=== PATIENT | male | born 1965 | race Two or more races ===

== ENCOUNTER 2023-07-11 19:38 | Inpatient (IN) | payer MEDICARE, MEDICAID ==
[~2023-07-11] VITALS: Ht 162.6 cm; Wt 65.5 kg
[2023-07-11 20:15] VITALS: PULSE 63; RESP 16; O2SAT 95
[2023-07-11 20:22] LABS: Basophils # (auto) 0.1 10 ^3/uL (0-0.2); Basophils % (auto) 0.6 % (0.0-2.0); Eosinophils # (auto) 0.1 10 ^3/uL (0-0.8); Eosinophils % (auto) 0.7 % (0.0-7.0); Hematocrit 40.9 % (41.0-53.0); Hemoglobin 13.5 g/dL (13.5-17.5); Lymphocytes # (auto) 1.3 10 ^3/uL (0.4-5.4); Lymphocytes % (auto) 13.6 % (10.0-50.0); Mean Corpuscular Hemoglobin 32.6 pg (28.0-32.0); Mean Corpuscular Volume 98.9 fL (80.0-100.0); Monocytes # (auto) 0.7 10 ^3/uL (0-1.3); Neutrophils # (auto) 7.4 10 ^3/uL (1.6-8.6); Neutrophils % (auto) 78.1 % (37.0-80.0); Red Blood Cells 4.14 10^6/uL (4.5-5.90); Red Cell Distribution Width 14.1 % (11.8-14.3); White Blood Cell 9.4 10^3/uL (4.4-10.8)
[2023-07-11 20:39] LABS: Acetaminophen < 2.0 UG/ML (10.0-20.0)
[2023-07-11 20:49] LABS: INR 1.03 (0.9-1.15); Prothrombin Time 10.9 sec (9.3-11.8)
[2023-07-11 20:52] LABS: Salicylate < 3.0 mg/dL (2.8-20.0)
[2023-07-11 20:55] LABS: Alanine Aminotransferase 30 U/L (7-40); Albumin 4.6 g/dL (3.2-4.8); Alkaline Phosphatase 60 U/L (46-116); Anion Gap 7 (5-15); Aspartate Aminotransferase 48 U/L (13-40); BUN/Creatinine Ratio 21.3 (10.0-20.0); Blood Urea Nitrogen 23 mg/dL (9-23); Calcium 9.6 mg/dL (8.7-10.4); Carbon Dioxide 26 mmol/L (20-30); Chloride 109 mmol/L (98-107); Glucose 99 mg/dL (74-106); Lipase 20 U/L (12-53); Magnesium 1.8 mg/dL (1.6-2.6); Potassium 4.7 mmol/L (3.5-5.1); Sodium 142 mmol/L (136-145)
[2023-07-11 20:56] LABS: Bilirubin, Total 0.4 mg/dL (0.2-1.0); Total Protein 7.4 g/dL (5.7-8.2)
[2023-07-11] MEDS ORDERED: ACETAMINOPHEN 325 MG TAB PO PRN (21:45)
[2023-07-11] MEDS ORDERED: DOCUSATE SOD 100 MG CAP PO PRN (21:45)
[2023-07-11 21:51] LABS: Blood Alcohol 3.4 mg/dL (<10)
[2023-07-11] MEDS: SODIUM CHLOR 0.9% PF (SALINE LOCK) 10ML VIAL/SYR IV SCH (22:09)
[2023-07-11] MEDS ORDERED: MORPHINE SULFATE INJ 2 MG/ml SYRG IV PRN (22:30)
[2023-07-11] MEDS ORDERED: NITROGLYCERIN 0.4 MG SL TAB SL PRN (22:30)
[2023-07-11] MEDS ORDERED: MECLIZINE HCL 25 MG TAB PO PRN (22:45)
[2023-07-11 23:37] LABS: Urine Bacteria FEW /hpf (None Seen); Urine Blood 1+ /uL (Negative); Urine Clarity Clear (Clear); Urine Color Yellow (Yellow); Urine Hyaline Cast FEW /lpf (0 - 2); Urine Protein, UAD TRACE (Negative); Urine Specific Gravity 1.017 (1.001-1.035); Urine Urobilinogen Normal (Negative); Urine WBC 53 /hpf (0 - 3)
[2023-07-11 23:45] LABS: Amphetamine Screen, Urine Neg (NEGATIVE); Barbiturate Scree,Urine Neg (NEGATIVE); Benzodiazephine Screen, Urine Neg (NEGATIVE); Cannabinoid Screen, Urine Neg (NEGATIVE); Cocaine Screen, Urine Neg (NEGATIVE); Opiate Scree,Urine Pos (NEGATIVE); Phencyclidine Screen, Urine Neg (NEGATIVE)
[2023-07-12] VITALS (8 sets, daily range): BP systolic 115–143; BP diastolic 52–83; PULSE 16–65; RESP 16–65; TEMP 97.9–98.7; O2SAT 91–99
[2023-07-12] MEDS: ONDANSETRON HCL 4 MG/2 ML VIAL IV PRN (01:54)
[2023-07-12] MEDS: HYDROcodone-ACET 5/325MG TAB PO PRN (02:03)
[2023-07-12] MEDS: LEVOTHYROXINE SODIUM 50 MCG TAB PO SCH (05:23)
[2023-07-12 05:44] LABS: Basophils # (auto) 0.1 10 ^3/uL (0-0.2); Basophils % (auto) 0.7 % (0.0-2.0); Eosinophils # (auto) 0 10 ^3/uL (0-0.8); Eosinophils % (auto) 0.5 % (0.0-7.0); Hematocrit 38.1 % (41.0-53.0); Hemoglobin 12.6 g/dL (13.5-17.5); Lymphocytes # (auto) 1.3 10 ^3/uL (0.4-5.4); Lymphocytes % (auto) 17.1 % (10.0-50.0); Mean Corpuscular Hemoglobin 32.9 pg (28.0-32.0); Mean Corpuscular Hgb Conc. 33.2 g/dL (32.0-36.0); Mean Corpuscular Volume 99.1 fL (80.0-100.0); Monocytes # (auto) 0.6 10 ^3/uL (0-1.3); Monocytes % (auto) 7.7 % (0.0-12.0); Neutrophils # (auto) 5.5 10 ^3/uL (1.6-8.6); Nucleated Red Blood Cells % 0.1 %; Red Blood Cells 3.85 10^6/uL (4.5-5.90); Red Cell Distribution Width 13.8 % (11.8-14.3); White Blood Cell 7.5 10^3/uL (4.4-10.8)
[2023-07-12 06:05] LABS: Alanine Aminotransferase 27 U/L (7-40); Albumin 4.2 g/dL (3.2-4.8); Alkaline Phosphatase 53 U/L (46-116); Anion Gap 7 (5-15); Aspartate Aminotransferase 41 U/L (13-40); Calcium 9.4 mg/dL (8.7-10.4); Carbon Dioxide 26 mmol/L (20-30); Chloride 109 mmol/L (98-107); Glucose 96 mg/dL (74-106); Sodium 142 mmol/L (136-145)
[2023-07-12 06:06] LABS: Bilirubin, Total 0.4 mg/dL (0.2-1.0); Total Protein 7.1 g/dL (5.7-8.2)
[2023-07-12 06:10] LABS: BUN/Creatinine Ratio 20.8 (10.0-20.0); Blood Urea Nitrogen 20 mg/dL (9-23)
[2023-07-12] MEDS: PANTOPRAZOLE 40 MG/10 ML VIAL INJ IV SCH (09:06)
[2023-07-12] MEDS: ASPirin 81 mg TAB PO SCH (09:07)
[2023-07-12] MEDS: PREGABALIN 25 MG CAP PO SCH (09:07)
[2023-07-12] MEDS: SERTRALINE HCL 50 MG TAB PO SCH (09:07)
[2023-07-12] MEDS: ATORVASTATIN 20 MG TAB PO SCH (21:32)
[2023-07-13 01:00] VITALS: BP 101/70; PULSE 62; RESP 18; TEMP 97.7; O2SAT 98
[2023-07-13 05:00] VITALS: BP 129/72; PULSE 63; RESP 18; TEMP 97.8; O2SAT 100
[2023-07-13] MEDS ORDERED: CARB200T5 PO (05:37)
[2023-07-14 10:10] LABS: Hepatitis B Surface Antigen Negative (Negative)
[2023-07-14 10:31] LABS: Hepatitis C Antibody Negative (Negative)
== END 2023-07-13 08:05 | disposition left against medical advice (07) | DRG 917 ==
LOC: EDBD 19:38 → ER 19:38 → TELE 22:17 → TELE-WESTW 07-12 00:51
PROVIDERS: ADMIT Nurse Practitioner Family; ATTEND Nurse Practitioner Family
DX: T40.2X1A Poisoning by other opioids, accidental (unintentional), initial encounter (principal); G93.41 Metabolic encephalopathy; E27.8 Other specified disorders of adrenal gland; K59.00 Constipation, unspecified; M54.9 Dorsalgia, unspecified; G89.29 Other chronic pain; F32.A Depression, unspecified; E78.5 Hyperlipidemia, unspecified; Z53.29 Procedure and treatment not carried out because of patient's decision for other reasons; F17.210 Nicotine dependence, cigarettes, uncomplicated; Z88.1 Allergy status to other antibiotic agents; Z88.6 Allergy status to analgesic agent; Z88.8 Allergy status to other drugs, medicaments and biological substances; Z79.899 Other long term (current) drug therapy; Z82.5 Family history of asthma and other chronic lower respiratory diseases; Z79.891 Long term (current) use of opiate analgesic; Y92.009 Unspecified place in unspecified non-institutional (private) residence as the place of occurrence of the external cause
CPT/HCPCS: 36415; 70450; 71045; 74176; 80053; 80307; 80320; 80329; 81001; 82140; 83690; 83735; 84443; 84484; 85025; 85610; 86803; 87340; 93005; C9113; G0378; J2405

== ENCOUNTER 2023-08-15 21:38 | Inpatient (IN) | payer MEDICARE, MEDICAID ==
[~2023-08-15] VITALS: Ht 162.6 cm; Wt 65.5 kg
[~2023-08-15 21:38] MED LIST: CARB200T5 PO
[2023-08-15 22:30] VITALS: PULSE 60; RESP 14; O2SAT 100
[2023-08-15 23:58] LABS: Basophils # (auto) 0 10 ^3/uL (0-0.2); Basophils % (auto) 0.3 % (0.0-2.0); Eosinophils # (auto) 0 10 ^3/uL (0-0.8); Eosinophils % (auto) 0.1 % (0.0-7.0); Hematocrit 42.1 % (41.0-53.0); Hemoglobin 13.9 g/dL (13.5-17.5); Lymphocytes # (auto) 1.3 10 ^3/uL (0.4-5.4); Lymphocytes % (auto) 11.7 % (10.0-50.0); Mean Corpuscular Hemoglobin 32.1 pg (28.0-32.0); Mean Corpuscular Volume 97.3 fL (80.0-100.0); Monocytes # (auto) 0.7 10 ^3/uL (0-1.3); Monocytes % (auto) 6.6 % (0.0-12.0); Neutrophils # (auto) 9.2 10 ^3/uL (1.6-8.6); Neutrophils % (auto) 81.3 % (37.0-80.0); Red Blood Cells 4.33 10^6/uL (4.5-5.90); Red Cell Distribution Width 13.9 % (11.8-14.3); White Blood Cell 11.3 10^3/uL (4.4-10.8)
[2023-08-16 00:14] LABS: Alanine Aminotransferase 22 U/L (7-40); Albumin 4.7 g/dL (3.2-4.8); Alkaline Phosphatase 67 U/L (46-116); Anion Gap 9 (5-15); Aspartate Aminotransferase 70 U/L (13-40); BUN/Creatinine Ratio 18.4 (10.0-20.0); Bilirubin, Total 0.4 mg/dL (0.2-1.0); Blood Urea Nitrogen 23 mg/dL (9-23); Calcium 10.1 mg/dL (8.7-10.4); Carbon Dioxide 26 mmol/L (20-30); Chloride 110 mmol/L (98-107); Glucose 114 mg/dL (74-106); Potassium 4.4 mmol/L (3.5-5.1); Sodium 145 mmol/L (136-145)
[2023-08-16] MEDS: LORazepam 2MG/ML-1ML VIAL IV ONE (00:51)
[2023-08-16] MEDS: SODIUM CHLORIDE 0.9% 1,000 ML IV ONE (05:49)
[2023-08-16 06:16] LABS: Urine Bacteria MANY /hpf (None Seen); Urine Blood Negative /uL (Negative); Urine Clarity Ex.Turbid (Clear); Urine Color Light-Orange (Yellow); Urine Mucus FEW (None Seen); Urine Protein, UAD 2+ (Negative); Urine Urobilinogen Normal (Negative); Urine WBC 98 /hpf (0 - 3)
[2023-08-16 06:27] LABS: Amphetamine Screen, Urine Neg (NEGATIVE)
[2023-08-16 06:29] LABS: Barbiturate Scree,Urine Neg (NEGATIVE); Benzodiazephine Screen, Urine Pos (NEGATIVE); Cocaine Screen, Urine Neg (NEGATIVE); Opiate Scree,Urine Pos (NEGATIVE)
[2023-08-16 06:30] LABS: Cannabinoid Screen, Urine Neg (NEGATIVE); Phencyclidine Screen, Urine Neg (NEGATIVE)
[2023-08-16] MEDS ORDERED: DOCUSATE SOD 100 MG CAP PO PRN (06:45)
[2023-08-16] MEDS ORDERED: HYDROcodone-ACET 5/325MG TAB PO PRN (06:45)
[2023-08-16] MEDS ORDERED: MORPHINE SULFATE INJ 2 MG/ml SYRG IV PRN (06:45)
[2023-08-16] MEDS ORDERED: LORazepam 2MG/ML-1ML VIAL IV PRN (06:45)
[2023-08-16] MEDS ORDERED: ACETAMINOPHEN 325 MG TAB PO PRN (06:45)
[2023-08-16] MEDS ORDERED: NITROGLYCERIN 0.4 MG SL TAB SL PRN (06:45)
[2023-08-16] MEDS: cefTRIAXone 1GM/50ML D5W 50 ML IV ONE (06:58)
[2023-08-16 07:06] LABS: Basophils # (auto) 0 10 ^3/uL (0-0.2); Basophils % (auto) 0.3 % (0.0-2.0); Eosinophils # (auto) 0 10 ^3/uL (0-0.8); Eosinophils % (auto) 0.2 % (0.0-7.0); Hematocrit 41.4 % (41.0-53.0); Hemoglobin 13.9 g/dL (13.5-17.5); Lymphocytes # (auto) 1.3 10 ^3/uL (0.4-5.4); Lymphocytes % (auto) 14.3 % (10.0-50.0); Mean Corpuscular Hemoglobin 32.7 pg (28.0-32.0); Mean Corpuscular Hgb Conc. 33.5 g/dL (32.0-36.0); Mean Corpuscular Volume 97.7 fL (80.0-100.0); Monocytes # (auto) 0.5 10 ^3/uL (0-1.3); Monocytes % (auto) 5.8 % (0.0-12.0); Neutrophils % (auto) 79.4 % (37.0-80.0); Red Blood Cells 4.24 10^6/uL (4.5-5.90); Red Cell Distribution Width 13.8 % (11.8-14.3); White Blood Cell 8.9 10^3/uL (4.4-10.8)
[2023-08-16 07:15] LABS: Chloride 113 mmol/L (98-107); Potassium 4.7 mmol/L (3.5-5.1); Sodium 144 mmol/L (136-145)
[2023-08-16 07:16] LABS: Anion Gap 6 (5-15); Calcium 9.4 mg/dL (8.5-10.1); Carbon Dioxide 25 mmol/L (20-30)
[2023-08-16 07:21] LABS: BUN/Creatinine Ratio 21.2 (10.0-20.0); Blood Urea Nitrogen 22 mg/dL (9-23); Glucose 108 mg/dL (74-106)
[2023-08-16 08:00] VITALS: PULSE 64; RESP 16; O2SAT 94
[2023-08-16 09:00] VITALS: RESP 16; O2SAT 95
[2023-08-16] MEDS: levETIRAcetam 1000 mg/100ml 100 ML IV SCH (10:42)
[2023-08-16] MEDS: SODIUM CHLOR 0.9% PF (SALINE LOCK) 10ML VIAL/SYR IV SCH (10:42)
[2023-08-16 14:17] VITALS: BP 114/86; PULSE 60; RESP 18; TEMP 98.1; O2SAT 96
[2023-08-16 15:34] VITALS: BP 107/64; PULSE 64; RESP 16; TEMP 98.5; O2SAT 95
[2023-08-16 19:30] VITALS: PULSE 75; PULSE 78; RESP 17
[2023-08-16 20:58] VITALS: BP 122/70; PULSE 68; RESP 18; TEMP 98; O2SAT 95
[2023-08-16] MEDS: carBAMazepine 200 MG TAB PO SCH (22:00)
[2023-08-17] VITALS (7 sets, daily range): BP systolic 105–133; BP diastolic 65–77; PULSE 60–78; RESP 17–20; TEMP 97.7–98.3; O2SAT 94–100
[2023-08-17] MEDS: cefTRIAXone 1GM/50ML D5W 50 ML IV SCH (09:21)
[2023-08-17 11:40] LABS: Basophils # (auto) 0 10 ^3/uL (0-0.2); Basophils % (auto) 0.2 % (0.0-2.0); Eosinophils # (auto) 0 10 ^3/uL (0-0.8); Hematocrit 37.7 % (41.0-53.0); Hemoglobin 12.7 g/dL (13.5-17.5); Lymphocytes # (auto) 0.8 10 ^3/uL (0.4-5.4); Lymphocytes % (auto) 8.2 % (10.0-50.0); Mean Corpuscular Hemoglobin 33.1 pg (28.0-32.0); Mean Corpuscular Hgb Conc. 33.6 g/dL (32.0-36.0); Mean Corpuscular Volume 98.4 fL (80.0-100.0); Monocytes # (auto) 0.7 10 ^3/uL (0-1.3); Monocytes % (auto) 7.3 % (0.0-12.0); Neutrophils # (auto) 8.4 10 ^3/uL (1.6-8.6); Neutrophils % (auto) 84.3 % (37.0-80.0); Nucleated Red Blood Cells % 0.1 %; Red Blood Cells 3.83 10^6/uL (4.5-5.90); Red Cell Distribution Width 13.9 % (11.8-14.3); White Blood Cell 9.9 10^3/uL (4.4-10.8)
[2023-08-17 12:03] LABS: Alanine Aminotransferase 38 U/L (7-40); Albumin 4.4 g/dL (3.2-4.8); Alkaline Phosphatase 62 U/L (46-116); Anion Gap 14 (5-15); Aspartate Aminotransferase 147 U/L (13-40); BUN/Creatinine Ratio 27.6 (10.0-20.0); Bilirubin, Total 0.5 mg/dL (0.2-1.0); Blood Urea Nitrogen 24 mg/dL (9-23); Calcium 9.7 mg/dL (8.5-10.1); Carbon Dioxide 18 mmol/L (20-30); Chloride 115 mmol/L (98-107); Glucose 119 mg/dL (74-106); Potassium 3.4 mmol/L (3.5-5.1); Sodium 147 mmol/L (136-145); Total Protein 7.3 g/dL (5.7-8.2)
[2023-08-17] MEDS ORDERED: MIDO2.5T3 PO (18:43)
[2023-08-17] MEDS ORDERED: MECL-90 PO (18:43)
[2023-08-17] MEDS ORDERED: SERT-206 PO (18:43)
[2023-08-17] MEDS ORDERED: FERR325T24 PO (18:43)
[2023-08-17] MEDS ORDERED: MORP15TA PO (18:43)
[2023-08-17] MEDS ORDERED: METH-1182 PO (18:43)
[2023-08-17] MEDS ORDERED: DOCU-94 PO (18:43)
[2023-08-17] MEDS ORDERED: MULT-1058 PO (18:44)
[2023-08-17] MEDS ORDERED: OYST1TAB OR (18:44)
[2023-08-17] MEDS ORDERED: ASPI-543 PO (18:44)
[2023-08-17] MEDS ORDERED: DRON400T PO (18:44)
[2023-08-17] MEDS ORDERED: PRAV20TA3 PO (18:44)
[2023-08-17] MEDS ORDERED: BACL10TA PO (18:44)
[2023-08-17] MEDS ORDERED: CHOL20007 OR (18:44)
[2023-08-17] MEDS ORDERED: LEVO50TA7 PO (18:44)
[2023-08-17] MEDS ORDERED: PANT1INJ3 PO (18:44)
[2023-08-17] MEDS ORDERED: MELO15TA29 PO (18:44)
[2023-08-17] MEDS ORDERED: DEUT24TA PO (18:44)
[2023-08-17] MEDS ORDERED: APIX5TAB PO (18:44)
[2023-08-17] MEDS ORDERED: MAGN400T40 PO (18:44)
[2023-08-17] MEDS ORDERED: CARB100C3 PO (18:44)
[2023-08-17] MEDS ORDERED: BUSP15TA60 PO (18:44)
[2023-08-18] VITALS (9 sets, daily range): BP systolic 121–130; BP diastolic 70–84; PULSE 60–84; RESP 17–22; TEMP 97.1–98.3; O2SAT 99–100
[2023-08-18] MEDS: ONDANSETRON HCL 4 MG/2 ML VIAL IV PRN (02:15)
[2023-08-18] MEDS ORDERED: CIPR-173 PO (11:06)
[2023-08-18] MEDS: LACTATED RINGER'S 1,000 ML IV ONE (13:58)
[2023-08-19 01:00] VITALS: BP 126/69; PULSE 70; RESP 18; TEMP 97.6; O2SAT 98
[2023-08-19 05:00] VITALS: BP 122/82; PULSE 60; RESP 18; TEMP 97.5; O2SAT 100
[2023-08-19 07:47] VITALS: PULSE 72; RESP 18; O2SAT 99
[2023-08-19 08:00] VITALS: PULSE 60
[2023-08-19] MEDS: carBAMazepine 200 MG TAB PO SCH (08:51)
[2023-08-19 09:00] VITALS: BP 135/76; PULSE 75; RESP 16; TEMP 97.8; O2SAT 98
[2023-08-19 11:25] VITALS: BP 116/61; PULSE 70; RESP 18; TEMP 98.3; O2SAT 98
== END 2023-08-19 13:00 | disposition home or self-care (01) | DRG 100 ==
LOC: ER 21:38 → EDBD 21:38 → TELE 08-16 06:40 → TELE-WESTW 08-16 09:39
PROVIDERS: ADMIT Nurse Practitioner Family; ATTEND Family Medicine
PROC: 05H933Z Insertion of Infusion Device into Right Brachial Vein, Percutaneous Approach (ICD-10-PCS; principal; 2023-08-18)
PROC: B54MZZA Ultrasonography of Right Upper Extremity Veins, Guidance (ICD-10-PCS; 2023-08-18)
DX: G40.209 Localization-related (focal) (partial) symptomatic epilepsy and epileptic syndromes with complex partial seizures, not intractable, without status epilepticus (principal); G93.41 Metabolic encephalopathy; I69.354 Hemiplegia and hemiparesis following cerebral infarction affecting left non-dominant side; N39.0 Urinary tract infection, site not specified; G40.909 Epilepsy, unspecified, not intractable, without status epilepticus; E03.9 Hypothyroidism, unspecified; E78.00 Pure hypercholesterolemia, unspecified; F32.A Depression, unspecified; G89.29 Other chronic pain; F03.90 Unspecified dementia, unspecified severity, without behavioral disturbance, psychotic disturbance, mood disturbance, and anxiety; M54.9 Dorsalgia, unspecified; Z93.3 Colostomy status; Z88.6 Allergy status to analgesic agent; Z88.8 Allergy status to other drugs, medicaments and biological substances; Z79.899 Other long term (current) drug therapy; Z82.5 Family history of asthma and other chronic lower respiratory diseases; Z95.0 Presence of cardiac pacemaker
CPT/HCPCS: 36415; 70450; 80048; 80053; 80307; 81001; 84443; 85025; 87040; 87086; 92610; 93005; 96361; 96365; 96375; G0378; J2405